=== PATIENT | female | born 2005 | race Caucasian/White ===

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

== ENCOUNTER 2023-01-05 17:52 | Emergency (ER) | payer BC, SELFPAY ==
[2023-01-05 17:52] VITALS: BP 149/90; PULSE 93; RESP 16; TEMP 36.8; O2SAT 98; BMI 32.3
[2023-01-05 18:00] VITALS: BP 148/85; PULSE 74; RESP 20; O2SAT 97
[2023-01-05 18:30] VITALS: BP 139/71; PULSE 73; RESP 20; O2SAT 99
[2023-01-05 18:33] LABS: Microscopic, Urine URINE MICROSCOPIC (MICROSCOPIC)
[2023-01-05 18:39] LABS: Appearance,Urine CLEAR (Clear); Bilirubin,Urine Negative (Negative); Blood, Urine 3+ (Negative); Color,Urine YELLOW (Yellow); Glucose,Urine (UA) Negative (Negative); Ketones,Urine 1+ (Negative); Leukocyte Esterase,Urine Negative (Negative); Nitrate,Urine Negative (Negative); PH,Urine 6.5 (5.0-8.5); Protein,Urine TRACE (Negative); Specific Gravity, Urine 1.015 (1.005-1.030)
--- NOTE | 2023-01-05 18:40 | HMH.EDGENADL ---
Discharge Plan Disposition Patient Disposition: Home, Self-Care Prescriptions Prescriptions: New ibuprofen 800 mg tablet 800 mg PO TID PRN (Reason: pain) 7 Days Qty: 20 0RF hydrocodone-acetaminophen 5-325 mg tablet 1 tab PO Q6H PRN (Reason: pain) 3 Days Qty: 12 0RF ondansetron 4 mg tablet,disintegrating 4 mg PO Q6H PRN (Reason: nausea and vomiting) 5 Days Qty: 20 0RF No Action norgestimate-ethinyl estradiol [Sprintec (28)] 0.25-35 mg-mcg tablet 1 tab PO DAILY Qty: 84 3RF Referrals Follow up/Referrals: Eduardo Galo MD [Primary Care Provider] - See instructions Clinical Impressions Clinical Impression: Hydronephrosis with renal and ureteral calculous obstruction Instructions Patient Instructions: DI for Acute Abdominal Pain Discharge ED Provider: Cody Hirsch General Adult HPI General Chief complaint: Abdominal Pain Stated complaint: abd pain Time Seen by Provider: 01/05/23 18:40 Mode of Arrival: Ambulatory Source of Information: Patient Limitations: No Limitations Description of Symptoms (Recalled from ER Triage Doc. by RN): pt to the ED with episdoes of intense right quadrant abdominal pain today with two episodes of nausea and vomiting including one with foul smelling dark emesis. pt also reports burning while urinating x 2 days. History of Present Illness HPI narrative: Patient is a 17-year-old female presenting with right lower quadrant abdominal pain. She states that this began relatively suddenly around 230 this afternoon and is subsequently associated with worsening with any type of movement. She has a history of PCOS but has never had any ruptured ovarian cysts before. Pain has somewhat improved since this first began. She still has her appendix has not had any abdominal surgeries. No vaginal bleeding or vaginal discharge she has had some mild dysuria the last few days no changes in bowel habits. No fevers or chills. Related Data Previous Rx's Medication Instructions Recorded norgestimate 0.25 mg-ethinyl 1 tab PO DAILY #84 tabs 12/03/22 estradiol 35 mcg tablet (Sprintec (28)) hydrocodone 5 mg-acetaminophen 325 1 tab PO Q6H PRN pain 3 days #12 01/05/23 mg tablet tabs ibuprofen 800 mg tablet 800 mg PO TID PRN pain 7 days #20 01/05/23 tabs ondansetron 4 mg disintegrating 4 mg PO Q6H PRN nausea and 01/05/23 tablet vomiting 5 days #20 tabs Allergies Allergy/AdvReac Type Severity Reaction Status Date / Time No Known Allergies Allergy Verified 01/19/22 09:15 [facility] Disclaimer: The information contained in this section may have been updated after the patient was seen, as this information can be updated by other users. Social History Smoking Status: Never smoker alcohol intake: never substance use type: denies use current occupational status: employed Travel in the last 8 weeks: None ROS Obtained: Yes All systems reviewed & no additional complaints except as documented Physical Exam General General appearance: alert Respiratory Respiratory exam: Present normal lung sounds bilaterally; Absent respiratory distress Cardiovascular Cardiovascular exam: Present regular rate; Absent tachycardia Abdominal Exam Abdominal exam: Present soft and tenderness (Right lower quadrant tenderness palpation no rebound or guarding no tenderness in other quadrant) Neurological Exam Neurological exam: Present alert, oriented X3 and CN II-XII intact Medical Decision Making Shad Inquiry Pt receiving controlled substance: No Vital Signs: 01/05/23 17:52 01/05/23 18:00 01/05/23 18:30 Temperature 98.3 F Temperature Source Oral Pulse Rate 74 73 Pulse Rate [Left Radial] 93 H Respiratory Rate 16 20 20 Blood Pressure 148/85 H 139/71 Blood Pressure [Right Arm] 149/90 H Blood Pressure Mean 101 93 Blood Pressure Mean [Right Arm] 109 Blood Pressure Source [Right Arm] Automatic Cuff Blood Pressure Position [Right Arm] Sitting 02 Sat by
--- NOTE | 2023-01-05 18:46 | CT_ITS ---
PROCEDURE INFORMATION: Exam: CT Abdomen And Pelvis With Contrast Exam date and time: 01/05/2023 7:20 PM Age: 17 years old Clinical indication: Abdominal pain; Localized; Right lower quadrant (rlq); Additional info: Rlq abd pain associated with vomiting today TECHNIQUE: Imaging protocol: Computed tomography of the abdomen and pelvis with contrast. Radiation optimization: All CT scans at this facility use at least one of these dose optimization techniques: automated exposure control; mA and/or kV adjustment per patient size (includes targeted exams where dose is matched to clinical indication); or iterative reconstruction. Contrast material: ISOVUE; Contrast volume: 75 ml; Contrast route: IV; REPORTING DATA: Count of CT and Cardiac NM exams in prior 12 months: This patient has received 0 known CTs and 0 known cardiac nuclear medicine studies in the 12 months prior to the current study. COMPARISON: No relevant prior studies available. FINDINGS: Liver: Normal. No mass. Gallbladder and bile ducts: Normal. No calcified stones. No ductal dilation. Pancreas: Normal. No ductal dilation. Spleen: Normal. No splenomegaly. Adrenal glands: Normal. No mass. Kidneys and ureters: On axial image 105, there is a 4 mm stone at or near the right ureterovesical junction. There is mild fullness of the right renal collecting system and mild periureteral edema. No other evidence of urolithiasis. Left kidney appears normal. Stomach and bowel: Unremarkable. No obstruction. No mucosal thickening. Appendix: No evidence of appendicitis. Intraperitoneal space: Unremarkable. No free air. No significant fluid collection. Vasculature: Unremarkable. No abdominal aortic aneurysm. Lymph nodes: There is mild diffuse mesenteric lymphadenopathy. No significant retroperitoneal lymphadenopathy. Urinary bladder: Unremarkable as visualized. Reproductive: Unremarkable as visualized. Bones/joints: Unremarkable. No acute fracture. Soft tissues: Unremarkable. IMPRESSION: 1. 4 mm stone in the region of the right ureterovesical junction producing mild right hydronephrosis 2. No CT evidence of appendicitis 3. Mild diffuse mesenteric lymphadenopathy, presumably sequela of prior enteritis or mesenteric adenitis
[2023-01-05 18:56] LABS: Urine Pregnancy, HCG Qual. Negative (Negative)
[2023-01-05 18:57] LABS: Bacteria,Urine Trace /lpf
[2023-01-05 19:00] VITALS: BP 133/71; PULSE 83; O2SAT 98
--- NOTE | 2023-01-05 19:25 | PC.NURSE ---
Pt returned from RAD
[2023-01-05 19:27] LABS: Basophils % 0.2 % (0.1-2.0); Eosinophils # 0.1 K/mm3 (0.0-0.4); Eosinophils % 0.5 % (0.1-12.0); Hematocrit 39.9 % (37.0-47.0); Hemoglobin 13.4 g/dL (12.2-16.2); Lymphocytes # 1.8 K/mm3 (0.7-4.5); Lymphocytes % 14.3 % (10-50); Mean Corpuscular HGB Conc 33.6 g/dL (31.8-35.4); Mean Corpuscular Hemoglobin 28.7 pg (27.0-31.2); Mean Corpuscular Volume 85.5 fl (81-99); Mean Platelet Volume 7.6 fl (7.4-10.4); Monocytes # 0.4 K/mm3 (0.1-1.0); Monocytes % 3.2 % (1.7-9.3); Neutrophils # 10.1 K/mm3 (1.8-7.8); Neutrophils % 81.8 % (37.0-80.0); Platelet Count 363 K/mm3 (142-424); Red Blood Count 4.67 M/mm3 (4.20-5.40); Red Cell Distribution Width 13.3 % (11.5-17.5); White Blood Count 12.3 K/mm3 (4.5-13.0)
[2023-01-05 19:30] VITALS: BP 128/81; PULSE 81; O2SAT 100
[2023-01-05 19:30] LABS: Chloride 103 mmol/L (98-107)
[2023-01-05 19:31] LABS: Potassium 4.1 mmoL/L (3.5-5.1); Sodium 141 mmol/L (136-145)
[2023-01-05 19:33] LABS: Alanine Aminotransferase 23 U/L (12-78); Aspartate Amino Transferase 32 U/L (14-36); Blood Urea Nitrogen 11 mg/dl (7-17); Creatinine Clearance Estimated 185 mL/min (50-200); Estimated Glomerular Filt Rate 108 ml/min (>60); GFR (African American) 130 ML/MIN (>60)
[2023-01-05 19:34] LABS: Albumin Level 4.4 g/dl (3.5-5.0); Albumin/Globulin Ratio 1.3 (1.1-1.8); Alkaline Phosphatase 66 U/L (38-126); Anion Gap 15.1 mEq/L (5-15); Bilirubin,Total 0.3 mg/dl (0.2-1.3); Calcium 9.5 mg/dl (8.4-10.2); Carbon Dioxide 27 mmol/L (22.0-30.0); Globulin 3.3 g/dL (1.3-3.2); Glucose 105 mg/dl (74-100); Total Protein,Serum 7.7 g/dl (6.3-8.2)
--- NOTE | 2023-01-05 19:44 | PC.NURSE ---
Dr. Hirsch at to update pt of results
[2023-01-05 20:01] VITALS: BP 124/73; PULSE 79; RESP 18; TEMP 36.8; O2SAT 100
== END 2023-01-05 20:04 | disposition home or self-care (01) ==
PROVIDERS: Emergency Provider Student in an Organized Health Care Education/Training Program; PCP Internal Medicine Adolescent Medicine
DX: N13.2 Hydronephrosis with renal and ureteral calculous obstruction (principal)
CPT/HCPCS: 74177; 80053; 81001; 81025; 85025; 96361; 96374; 96375; 99285; J2405; Q9967

== ENCOUNTER 2025-07-25 19:30 | Emergency (ER) | payer BC, SELFPAY ==
--- OUTSIDE RECORDS SUMMARY | 2025-02-05 06:30 | XMS_ITS ---
Author Organization [facility] Address [address] [facility] [address] [place] [id number] Care Team Providers Care Port Patrol Officer Name Role Phone Pool Fontenot Unavailable [phone] Allergies No Known Allergies Results Component Value Reference Range Notes CBC Venipuncture (in house) Reviewed date:02/06/2025 10:23:50 AM Interpretation:Normal Performing Lab: Notes/Report: Normal wbc 10.0 3.5 - 10 lymph 28.1% 15 - 50 mid 6.5% 2 - 15 gran 65.4% 35 - 80 rbc 5.40 3.5 - 5.5 hgb 15.5 11.5 - 16.5 hct 46.4 35 - 55 mcv 85.9 75 - 100 mch 28.8 25 - 35 mchc 33.6 31 - 38 platlet 420 100 - 400 P-Comprehensive Metabolic Pa wesley (CMP) Reviewed date:02/06/2025 10:23:50 AM Interpretation:Normal Performing Lab: Notes/Report: Test performed by [facility], [place] [address] [place] [address] , [address], [place] [address] Tomasz Lee MD, Health Information Managers CLIA: [id number] Sodium 138 135-145 mmol/L Potassium 4.4 3.5-5.3 mmol/L Chloride 102 97-108 mmol/L CO2 25 20-32 mmol/L Glucose 99 65-99 mg/dL BUN 15 6-20 mg/dL Creatinine 0.56 0.50-1.00 mg/dL Calcium 9.9 8.6-10.4 mg/dL eGFR by Creatinine 133 >59 mL/min/1.73m2 Protein 7.3 6.0-8.3 g/dL Albumin 4.3 3.5-5.3 g/dL Alkaline Phosphatase 79 35-121 IU/L ALT (SGPT) 20 <5-47 IU/L AST (SGOT) 14 <5-40 IU/L Bilirubin, Total 0.3 <0.2-1.2 mg/dL A/G Ratio 1.4 1.1-2.5 P-Testosterone, Free, Bioava ilable, and Total (Adult Male) Reviewed date:02/06/2025 10:23:50 AM Interpretation:TT 53.10, FreeT% 0.86 Performing Lab: Notes/Report: Test performed by [facility] [address] [place], [place] [address] [place] , [place] [address] Tomasz Lee MD, Health Information Managers CLIA: [id number] Testosterone Total 53.10 8.00-48.00 ng/dL Sex Hormone Binding Globulin (SHBG) 94.3 24.6-122.0 nmol/L Free Testosterone, Percent 0.86 1.60-2.90 % Free Testosterone (calculation) 5 1-7 pg/mL Testosterone Bioavailable 11 2-21 ng/dL P-FSH and LH Reviewed date:02/06/2025 10:23:50 AM Interpretation:LH 3.40, FSH 4.65 Performing Lab: Notes/Report: Test performed by [facility] [address] [place] [address] , [place] [address] Tomasz Lee MD, Health Information Managers CLIA: [id number] Luteinizing Hormone 3.40 LH Reference Range Men: 1.7 - 8.6 Women: Follicular phase 2.4 - 12.6 Ovulation phase 14.0 - 95.6 Luteal phase 1.0 - 11.4 Postmenopause 7.7 - 58.5 FSH 4.65 FSH Reference Range Men: 1.5 - 12.4 Women: Follicular phase 3.5 - 12.5 Ovulation phase 4.7 - 21.5 Luteal phase 1.7 - 7.7 Postmenopause 25.8 - 134.8 P-Lipid Panel Reviewed date:02/06/2025 10:23:50 AM Interpretation:Non-HDL 147 Performing Lab: Notes/Report: Test performed by [facility] [address] [place], [place] [address] [place] , [place] [address] Tomasz Lee MD, Health Information Managers CLIA: [id number] Cholesterol 198 <200 mg/dL Triglycerides 149 <150 mg/dL HDL Cholesterol 51 >39 mg/dL Cholesterol / HDL Ratio 3.88 0.00-4.44 Ratio Non-HDL Cholesterol 147 <130 mg/dL LDL Cholesterol (Calculation) 117 <130 mg/dL LDL Cholesterol Levels* Less than 100 mg/dL Optimal 100 to 129 mg/dL Near Optimal/ Above Optimal 130 to 159 mg/dL Borderline High 160 to 189 mg/dL High 190 mg/dL and above Very High * Categories as recommended by the 2004 ATPIII guidelines LDL/HDL Ratio 2.3 <3.3 Ratio LDL Cholesterol Patient History Test Date: 02/05/2025 LDL Results: 117 Units: mg/dL % Change: - Prolactin Reviewed date:02/06/2025 10:23:50 AM Interpretation:Normal Performing Lab: Notes/Report: Test performed by [facility] [address] [place] [address] [address], [place] [address] Tomasz Lee MD, Health Information Managers CLIA: [id number] Prolactin 8.58 4.79-23.30 ng/mL P-TSH reflex to FT4 Reviewed date:02/06/2025 10:23:50 AM Interpretation:Normal Performing Lab: Notes/Report: Test performed by [facility] [address] [address], [place] [address] Tomasz Lee MD, Health Information Managers CLIA: [id number] TSH reflex to FT4 1.62 0.43-5.25 mU/L P-Uric Acid Reviewed date:02/06/2025 10:23:50 AM Interpretation:Normal Performing Lab: Notes/Report: Test performed by [facility] [address] [place] [address] , [address], [place] [address] Tomasz Lee MD, Health Information Managers CLIA: [id number] Uric Acid 4.8 2.4-7.0 mg/dL REASON FOR VISIT New pt Medications Medication SIG (Take, Route, Frequency, Duration) Notes Start Date End Date Status Estarylla 0.25-35 MG-MCG 1 tablet Orally Once a day Active Ondansetron HCl 4 MG 1 tablet Orally 3 times a day As needed 02/05/2025 Active Problems Problem Type SNOMED Code ICD Code Onset Dates Problem Status W/U Status Risk Notes Problem Polycystic ovary syndrome (disorder) (550247300) PCOS (polycystic ovarian syndrome) (E28.2) Active confirmed Problem Morbid obesity (518432350) Morbid obesity (E66.01) Active confirmed Vital Signs Weight 245 lbs 02/05/2025 Blood pressure systolic 154 mm Hg 02/06/20 25 Blood pressure diastolic 98 mm Hg 025 Heart Rate 90 /min 02/05/2025 Height 65 in 02/05/2025 BMI 40.77 kg/m2 02/05/2025 Encounters Encounter Location Date Provider Diagnosis [facility] [address] [facility] [address] [place], [place] [id number] 02/05/2025 Pool Fontenot PCOS (polycystic ovarian syndrome) E28.2 ; Elevated blood pressure reading R03.0 ; Morbid obesity E66.01 and Motion sickness, initial encounter T75.3XXA Assessments Encounter Date Diagnosis (ICD Code) Assessment Notes Treatment Notes Treatment Clinical Notes Section Notes 02/05/2025 PCOS (polycystic ovarian syndrome) (ICD-10 - E28.2) 02/05/2025 Elevated blood pressure reading (ICD-10 - R03.0) Blood pressure journal 02/05/2025 Morbid obesity (ICD-10 - E66.01) Momo PA requested 02/05/2025 Motion sickness, initial encounter (ICD-10 - T75.3XXA) Plan Of Treatment Medication Medication Name Sig Start Date Stop Date Notes Ondansetron HCl 4 MG 1 tablet Orally 3 times a day 025 Treatment Notes Assessment Notes Elevated blood pressure reading Blood pr essure journal Morbid obesity Zepbound JOHNNY requeste d Next Appt Details Follow Up: via phone to repo rt test results, Reason: Progress Notes * Irish ZHOUDOB:[birth year] (19 yo F)Acc No.[id number]:02/05/2025 Progress Notes Patient: Irish ANTON Provider: Funmi Fontenot M.D. :2005 A ge:19 Y S ex:Female Date:02/05/2025 Phone: Address:[address] [place] [address], [place], [id number] Subjective: * Chief Complaints: * 1 . New pt. * HPI: H PI: 19 year old female presents with c/o Patient is here today for?Pt [facility], pt was previously seen by Dr. Galo. Pt states she is doing well and does not have any concerns today. * ROS: D ERMATOLOGY: no R alejandro. n o H viviana. G ASTROENTEROLOGY: no N ausea. n o V omiting. U ROLOGY: no D ifficulty urinating. n o B lood in urine. * Medical History: P olycystic ovarian syndrome, Kidney stones. * Surgical History: T onsilectomy , Adenoidectomy . * Hospitalization/Major Diagno stic Procedure: D enies Past Hospitalization. * Family History: F ather: alive 45 yrs. M other: alive 41 yrs. 1 sister(s) . . * Social History: C URRENT TOBACCO USE: No . C affeine: yes, frequency: 1-3 soft drinks per week. Alcohol: no. * Medications: T aking Estarylla 0.25-35 MG-MCG Tablet 1 tablet Orally Once a day , Medication List reviewed and reconciled with the patient * Allergies: N .K.D.A. Objective: * Vitals: W t: 245, Temp: 98.0, BP: 154/98, HR: 90, Nurse: lisandra, Ht: 65, BMI:40.77. * Examination: G eneral Examination: General Appearance: N AD. H EENT: u nremarkable.?Oral cavity: n o lesions, mucosa moist and WNL, no erythema. N aurora: s upple, no lymphadenopathy. H eart: R SR. L ungs: c lear to auscultation. S kin: n ormal, no rash. P eripheral pulses: n ormal (2+) bilaterally. E xtremities: n o leg edema.? Assessment: * Assessment: 1. P COS (polycystic ovarian syndrome) - E28.2 (Primary) 2 . E levated blood pressure reading - R03.0 3 . M orbid obesity - E66.01 4 . M otion sickness, initial encounter - T75.3XXA Plan: * Treatment: Value Reference Range F ree Testosterone, Percent 0.86 L 1.60-2.90 - % * S ex Hormone Binding Globulin (SHBG) 94.3 24.6- 122.0 - nmol/L * T estosterone Total (Adult Male) 53.10 H 8.00-48.0 0 - ng/dL * T estosterone Bioavailable 11 2-21 - ng/dL * F ree Testosterone (calculation) 5 1-7 - pg/ mL * Maria De Guzman 02/06/2025 10:2 3:42 AM EDT > See phone encounter ?LAB: P-FSH and LH (Collection Date & Time - 02/05/2025 11:23 AM)?LH 3.40, FSH 4.65* Value Reference Range F SH 4.65 - mIU/mL * L uteinizing Hormone 3.40 - mIU/mL * Maria De Guzman 02/06/2025 10:2 3:42 AM EDT > See phone encounter ?LAB: Prolactin (Collection Date & Time - 02/05/2025 11:23 AM)?Normal* Value Reference Range P rolactin 8.58 4.79-23.30 - ng/mL * Maria De Guzman 02/06/2025 10:2 3:42 AM EDT > See phone encounter ?LAB: P-TSH reflex to FT4 (Collection Date & Time - 02/05/2025 11:23 AM)? Normal* Value Reference Range T SH reflex to FT4 1.62 0.43-5.25 - mU/L * Maria De Guzman 02/06/2025 10:2 3:42 AM EDT > See phone encounter 2.?Elevated blood pressure reading?LAB: P-Comprehensive Metabolic Panel (CMP) (Collection Date & Time - 02/05/2025 11:23 AM)?Normal* Value Reference Range A /G Ratio 1.4 1.1-2.5 - * A lbumin 4.3 3.5-5.3 - g/dL * A lkaline Phosphatase 79 35-121 - IU/L * A LT (SGPT) 20 <5-47 - IU/L * A ST (SGOT) 14 <5-40 - IU/L * B ilirubin, Total 0.3 <0.2-1.2 - mg/dL * B UN 15 6-20 - mg/dL * C alcium 9.9 8.6-10.4 - mg/dL * C hloride 102 97-108 - mmol/L * C O2 25 20-32 - mmol/L * C reatinine 0.56 0.50-1.00 - mg/dL * G lucose 99 65-99 - mg/dL * P otassium 4.4 3.5-5.3 - mmol/L * S odium 138 135-145 - mmol/L * P rotein 7.3 6.0-8.3 - g/dL * e GFR by Creatinine 133 >59 - mL/min/1.73m2 * Maria De Guzman 02/06/2025 10:2 3:42 AM EDT > See phone encounter ?LAB: P-Lipid Panel (Collection Date & Time - 02/05/2025 11:23 AM)?Non-HDL 147* Value Reference Range C holesterol / HDL Ratio 3.88 0.00-4.44 - Ratio * C holesterol 198 <200 - mg/dL * H DL Cholesterol 51 >39 - mg/dL * L DL Cholesterol (Calculation) 117 <130 - mg/d L * L DL/HDL Ratio 2.3 <3.3 - Ratio * N on-HDL Cholesterol 147 H <130 - mg/dL * T riglycerides 149 <150 - mg/dL * Maria De Guzman 02/06/2025 10:2 3:42 AM EDT > See phone encounter ?LAB: P-TSH reflex to FT4 (Collection Date & Time - 02/05/2025 11:23 AM)? Normal* Value Reference Range T SH reflex to FT4 1.62 0.43-5.25 - mU/L * Maria De Guzman 02/06/2025 10:2 3:42 AM EDT > See phone encounter ?LAB: P-Uric Acid (Collection Date & Time - 02/05/2025 11:23 AM)?Normal* Value Reference Range U lyndsay Acid 4.8 2.4-7.0 - mg/dL * Gege Maria 02/06/2025 10:2 3:42 AM EDT > See phone encounter ?LAB: CBC Venipuncture (in house) (Collection Date & Time - 02/05/2025)? Normal* Value Reference Range w bc 10.0 3.5 - 10 * l ymph 28.1% 15 - 50 * m id 6.5% 2 - 15 * g ran 65.4% 35 - 80 * r bc 5.40 3.5 - 5.5 * h gb 15.5 11.5 - 16.5 * h ct 46.4 35 - 55 * m cv 85.9 75 - 100 * m ch 28.8 25 - 35 * m chc 33.6 31 - 38 * p latlet 420 100 - 400 * Melinda Duke 02/05/2025 05:47:3 7 PM EDT > GegeMaria 02/06/2025 10:23:42 AM EDT > See phone encounter Notes: Blood pressure journal??3.?Morbid obesity?LAB: P-Comprehensive Metabolic Panel (CMP) (Collection Date & Time - 02/05/2025 11:23 AM)?Normal* Value Reference Range A /G Ratio 1.4 1.1-2.5 - * A lbumin 4.3 3.5-5.3 - g/dL * A lkaline Phosphatase 79 35-121 - IU/L * A LT (SGPT) 20 <5-47 - IU/L * A ST (SGOT) 14 <5-40 - IU/L * B ilirubin, Total 0.3 <0.2-1.2 - mg/dL * B UN 15 6-20 - mg/dL * C alcium 9.9 8.6-10.4 - mg/dL * C hloride 102 97-108 - mmol/L * C O2 25 20-32 - mmol/L * C reatinine 0.56 0.50-1.00 - mg/dL * G lucose 99 65-99 - mg/dL * P otassium 4.4 3.5-5.3 - mmol/L * S odium 138 135-145 - mmol/L * P rotein 7.3 6.0-8.3 - g/dL * e GFR by Creatinine 133 >59 - mL/min/1.73m2 * Maria De Guzman 02/06/2025 10:2 3:42 AM EDT > See phone encounter ?LAB: P-TSH reflex to FT4 (Collection Date & Time - 02/05/2025 11:23 AM)? Normal* Value Reference Range T SH reflex to FT4 1.62 0.43-5.25 - mU/L * Maria De Guzman 02/06/2025 10:2 3:42 AM EDT > See phone encounter Notes: Zepbound PA requested??4.?Motion sickness, initial encounter? Start Ondansetron HCl Tablet, 4 MG, 1 tablet, Orally, 3 times a day As needed, 30, Refills 1.? * Procedure Codes: 8 5025 CBC WITH AUTO DIFF, 1036F TOBACCO NON-USER * Follow Up: v ia phone to report test results * Images: Billing Information: * Visit Code: 23012 Office Visit, New Pt., Level 4. * Procedure Codes: 98373 CBC WITH AUTO DIFF. 1036F TOBACCO NON-USER. * Electronic signature of Christine Fontenot MD on 07/25/2025 at 08:15 PM EST Sign off status: Pending * Provider: Funmi Fontenot M.D. Date: 0 02/05/2025 Generated for Liborio zavala/Josie/eTransmitting on: 1 09/25/2024 08:15 PM EST History and Physical Notes * HPI (History of Present Illness) Category Sub-Category Detail Notes Category Not es HPI Patient is here today for Pt [facility], pt was previously seen by Dr. Galo. Pt states she is doing well and does not have any concerns today Examination Category Sub-Category Detail Notes Category Not es General Examination HEENT: unremarkable Heart: RSR Lungs: clear to auscultatio n Extremities: no leg edema General Appearance: NAD Skin: normal, no rash Neck: supple, no lymphaden opathy Oral cavity: no lesions, mucosa m oist and WNL, no erythema Peripheral pulses: normal (2+) bilatera lly
[2025-07-25 19:56] LABS: Microscopic, Urine URINE MICROSCOPIC (MICROSCOPIC)
[2025-07-25 20:14] LABS: Bilirubin,Urine Negative (Negative); Color,Urine YELLOW (Yellow); Glucose,Urine (UA) Negative (Negative); Ketones,Urine Negative (Negative); Leukocyte Esterase,Urine Negative (Negative); PH,Urine 7.0 (5.0-8.5); Protein,Urine Negative (Negative); Specific Gravity, Urine 1.020 (1.005-1.030); Urobilinogen,Urine 0.2 EU/dl (0.2)
--- OUTSIDE RECORDS SUMMARY | 2025-07-25 20:15 | XMS_ITS | Patient Health Record ---
Author Organization [facility] Address [address] [facility] [address] [place] [id number] Care Team Providers Care Alterations Workroom Clerk Name Role Phone Pool Fontenot Unavailable [phone] Allergies No Known Allergies Results Component Value [...] date:02/06/2025 10:23:50 AM Interpretation:Normal Performing Lab: Notes/Report: CLIA: [id number] Tomasz Lee MD, Surfacing Machine Operator [address] [place] [address] , [address], [place] [address] Test performed by [facility], [employer] Sodium 138 135-145 mmol/L Potassium 4.4 3.5-5.3 [...] 0.86 Performing Lab: Notes/Report: Test performed by [facility] [address] [place] [address] , [place] [address] Tomasz Lee MD, Surfacing Machine Operator CLIA: [id number] Testosterone Total 53.10 8.00-48.00 ng/dL Sex Hormone Binding Globulin (SHBG) 94.3 24.6-122.0 nmol/L Free Testosterone, Percent 0.86 1.60-2.90 % Free Testosterone (calculation) 5 1-7 pg/mL Testosterone Bioavailable 11 2-21 ng/dL P-FSH and LH Reviewed date:02/06/2025 10:23:50 AM Interpretation:LH 3.40, FSH 4.65 Performing Lab: Notes/Report: Test performed by [facility] [address] [place] [address] , [place] [address] Tomasz Lee MD, Surfacing Machine Operator CLIA: [id number] Luteinizing Hormone 3.40 LH Reference Range Men: [...] 147 Performing Lab: Notes/Report: Test performed by [facility] [address] [place], [place] [address] , [place] [address] Tomasz Lee MD, Surfacing Machine Operator CLIA: [id number] Cholesterol 198 <200 mg/dL Triglycerides 149 <150 [...] Interpretation:Normal Performing Lab: Notes/Report: Test performed by [facility] [address] [place] [address] , [place] [address] Tomasz Lee MD, Surfacing Machine Operator CLIA: [id number] Prolactin 8.58 4.79-23.30 ng/mL P-TSH reflex to FT4 Reviewed date:02/06/2025 10:23:50 AM Interpretation:Normal Performing Lab: Notes/Report: Test performed by [facility] [address] [place] [address] , [address], [place] [address] Tomasz Lee MD, Surfacing Machine Operator CLIA: [id number] TSH reflex to FT4 1.62 0.43-5.25 mU/L P-Uric Acid Reviewed date:02/06/2025 10:23:50 AM Interpretation:Normal Performing Lab: Notes/Report: Test performed by [employer], [employer] [address] [place] [address] , [address], [place] [address] Tomasz Lee MD, Surfacing Machine Operator CLIA: [id number] Uric Acid 4.8 2.4-7.0 mg/dL Reason For Referral No Information Medications Medication SIG (Take, Route, Frequency, Duration) Notes Start Date End Date Status Estarylla 0.25-35 MG-MCG 1 tablet Orally Once a day Active Ondansetron 4 MG 1 tablet on the tong ue and allow to dissolve Orally 3 times a day prn 02/05/2025 Active Problems Problem Type SNOMED Code ICD Code Onset Dates Problem Status W/U Status Risk Notes Problem Morbid obesity (870684838) Morbid obesity (E66.01) Active confirmed Problem Polycystic ovary syndrome (disorder) (838324957) PCOS (polycystic ovarian syndrome) (E28.2) Active confirmed Vital Signs Heart Rate 90 /min 02/05/2025 Blood pressure diastolic 98 mm Hg 02/05/2025 Height 65 in 02/05/2025 Blood pressure systolic 154 mm Hg 02/05/2025 Weight 245 lbs 02/05/2025 BMI 40.77 kg/m2 02/05/2025 Encounters Encounter Location Date Provider Diagnosis [facility] [address] [facility] [address] [place], [place] [id number] 02/05/2025 Pool Golden PCOS (polycystic ovarian syndrome) E28.2 ; Elevated blood pressure reading R03.0 ; Morbid obesity E66.01 and Motion sickness, initial encounter T75.3XXA [facility] [address] [place], [place] [id number] 02/05/2025 Pool Golden [facility] [address] [place], [place] [id number] 02/05/2025 Pool Golden Motion sickness, initial encounter T75.3XXA [facility] [address] [place], [place] [phone] 02/06/2025 Pool Fontenot Assessments Encounter Date Diagnosis (ICD Code) Assessment Notes Treatment Notes Treatment Clinical Notes Section Notes 02/05/2025 PCOS (polycystic ovarian syndrome) (ICD-10 - E28.2) 02/05/2025 Elevated blood pressure reading (ICD-10 - R03.0) Blood pressure journal 02/05/2025 Motion sickness, initial encounter (ICD-10 - T75.3XXA) 02/05/2025 Morbid obesity (ICD-10 - E66.01) Zepbound PA requested 02/05/2025 Motion sickness, initial encounter (ICD-10 - T75.3XXA) Plan Of Treatment No Information Insurance Providers Payer Name Payer Address Payer Phone Subscriber Number Group Number Insured Name Patient Relationship to Insured Coverage Start Date Coverage End Date [facility] [address] [place] [address] [id number] Irish Alfaro Self - patient is the insured Medical (General) History Medical History History ICD Code Polycystic ovarian syndrome kidney stones Surgical History Surgery Date(Month/Year) Tonsilectomy Adenoidectomy
[2025-07-25 20:20] VITALS: BP 154/67; PULSE 89; RESP 18; TEMP 36.6; O2SAT 98; BMI 38.7
--- NOTE | 2025-07-25 20:25 | ED_ITS ---
Discharge Plan Disposition Patient Disposition: Home, Self-Care Condition: Good Prescriptions Prescriptions: New dicyclomine 10 mg capsule 10 mg PO BID 5 Days Qty: 10 0RF No Action norgestimate-ethinyl estradiol [Estarylla] 0.25-0.035 mg tablet 1 tab PO DAILY Qty: 84 4RF Referrals Follow up/Referrals: Eduardo aGlo MD [Primary Care Provider, Internal Medicine] - See instructions Activity Restrictions/Add. Instructions Additional Instructions/Restrictions: You can take the Bentyl as needed and take Tylenol and ibuprofen for your symptoms over the next couple days. Please return to the emergency department for any acute or significant worsening symptoms. Clinical Impressions Clinical Impression: Abdominal pain Instructions Patient Instructions: DI for Acute Abdominal Pain Print Language Print Language: Indonesian Discharge ED Provider: Tory Martínez Adult HPI General Chief complaint: Abdominal Pain Stated complaint: abdominal pain burning urination Time Seen by Provider: 07/25/25 19:41 History of Present Illness HPI narrative: Patient is a 19-year-old female with no significant past medical history who presented to the emergency department with abdominal pain. Patient states that her symptoms started today started in her right upper quadrant, migrated to the left lower quadrant and then to the middle of her abdomen. Patient denies any fevers, patient denies any chest pain or shortness of breath. Patient denies any vomiting reports some mild nausea. Patient reports 2 episodes of diarrhea 2 days ago which have since resolved. Patient reports normal bowel movement today. Patient denies any prior abdominal surgeries. Patient is on hormone medications for PCOS but denies any other medications. Patient states that she is currently pain-free at this time. Patient does report some burning with urination but denies any frequency or urgency. Related Data Previous Rx's ?Medication ?Instructions ?Recorded norgestimate 0.25 mg-ethinyl 1 tab PO DAILY #84 tabs 0 01/22/25 estradiol 0.035 mg tablet (Estarylla) dicyclomine 10 mg capsule 10 mg PO BID 5 days #10 caps 07/25/25 Allergies Allergy/AdvReac Type Severity Reaction Status Date / Time No Known Allergies Allergy Verified 01/22/25 14:45 [facility] Disclaimer: The information contained in this section may have been updated after the patient was seen, as this information can be updated by other users. Medical History No significant medical problems Surgical History History of tonsillectomy Family History Other Cancer Diabetes Social History Smoking Status: Never smoker alcohol intake: never substance use type: denies use current occupational status: employed Travel in the last 8 weeks?: None Have you lived/traveled outside [place] in past 30 days?: No Contact w/someone who lives/traveled outside [place] past 30 days?: No Exposure to someone with infectious disease in past 14 days?: No Do you have a fever (greater than 100.4 F or 38 C)?: No Have you tested positive for COVID-19?: No Exposed to someone with COVID-19 in past 14 days?: No Do you have a sore throat?: No Do you have a cough?: No Do you have any weakness?: No Do you have any diarrhea?: No Are you experiencing any unusual bleeding?: No Do you have any muscle aches/pain?: No Do you have any abdominal pain?: Yes Are you experiencing loss of taste or smell?: No ROS Obtained: Yes All systems reviewed & no additional complaints except as documented and Yes Systems reviewed as appropriate & no additional complaints except as documented Physical Exam General General appearance: alert and in no apparent distress Head Head exam: atraumatic, normocephalic and normal inspection Eye Eye exam: Present normal appearance, PERRL and EOMI; Absent scleral icterus ENT ENT exam: Present normal exam and normal external ear exam Neck Neck exam: Present normal inspection and full ROM Chest Chest inspection: Present normal inspection and symmetric chest wall rise Respiratory Respiratory exam: Present normal lung sounds bilaterally; Absent respiratory distress or wheezes Cardiovascular Cardiovascular exam: Present regular rate, normal rhythm and normal heart sounds Abdominal Exam Abdominal exam: Present soft, distention and tenderness (rlq and suprapubic tenderness); Absent guarding or rebound Extremities Exam Extremities exam: Present normal inspection and full ROM Back Exam Back exam: Present normal inspection and full ROM Neurological Exam Neurological exam: Present alert and oriented X3 Psychiatric Psychiatric exam: Present normal affect and normal mood Skin Skin exam: Present warm and dry Medical Decision Making Medical Records Medical records reviewed: Yes I reviewed the patient's medical records. Screening: Per USPSTF and CDC recommendations, given the prevalence of disease in our region, it is our hospital?s policy to screen for HIV and viral Hepatitis for all patients aged 18 and over and those with ongoing risk factors. Shad Inquiry Pt receiving controlled substance: No Vital Signs: 07/25/25 20:20 07/25/25 20:26 07/25/25 23:09 Temperature 97.9 F 98.9 F 98.5 F Temperature Source Oral Oral Oral Pulse Rate 74 88 Pulse Rate [Left] 89 Respiratory Rate 18 18 15 Blood Pressure 154/78 H 138/87 Blood Pressure [Right Arm] 154/67 H Blood Pressure Mean [Right Arm] 96 Blood Pressure Source Automatic Cuff Blood Pressure Position Sitting 02 Sat by Pulse Oximetry 98 98 Oxygen Delivery Method Room Air Room Air Room Air Lab Data Lab results reviewed: Yes I reviewed the patient's lab results. Lab Results 07/25/25 19:40: Urine Color Yellow, Urine Appearance Clear, Urine pH 7.0, Ur Specific [place] 1.020, Urine Protein Negative, Urine Glucose (UA) Negative, Urine Ketones Negative, Urine Blood Negative, Urine Nitrate Negative, Urine Bilirubin Negative, Urine Urobilinogen 0.2, Ur Leukocyte Esterase Negative 07/25/25 20:50: WBC 11.3 H, RBC 4.72, Hgb 13.5, Hct 39.6, MCV 83.9, MCH 28.6, MCHC 34.1, RDW 12.6, Plt Count 371, MPV 8.9, Neut % (Auto) 52.8, Lymph % (Auto) 38.7, [place] % (Auto) 6.2, Eos % (Auto) 1.6, Baso % (Auto) 0.4, Neut # (Auto) 6.0, Lymph # (Auto) 4.4, [place] # (Auto) 0.7, Eos # (Auto) 0.2, Baso # (Auto) 0.1, Sodium 139, Potassium 3.7, Chloride 104, Carbon Dioxide 26, Anion Gap 12.7, BUN 13, Creatinine 0.80, Estimated Creat Clear 191, Estimated GFR 91, Est GFR ( Amer) 110, Glucose 101 H, Calcium 9.5, Total Bilirubin 0.3, AST 27, ALT 27, Alkaline Phosphatase 64, Total Protein 8.0, Albumin 4.7, Globulin 3.3 H, Albumin/Globulin Ratio 1.4, Lipase 61, Serum HCG, Qual Negative, HCV Ab DICK w/Rflx PCR Qn Negative, HIV Ag/Ab Combo Qual Negative 07/25/25 20:50 07/25/25 20:50 Orders (Tests/Meds): ED MEDICATIONS Discontinued Medications Generic Name Dose Route Start Last Admin Trade Name Minhq PRN Reason Stop Dose Admin Iopamidol 75 ml 07/25/25 21:37 07/25/25 21:38 Iopamidol-370 (76%);100ml Bottle IV 07/25/25 21:38 75 ml ONCE ONE Administration Sodium Chloride 10 ml 07/25/25 21:37 07/25/25 21:38 Sodium Chloride 0.9% 10ml Syr (Rad Only) IV 07/25/25 21:38 10 ml ONCE ONE Administration ORDERS Category Date Time Status CT abdomen pelvis w con Stat Cat Scan 07/25/25 20:31 Completed CBC w/Auto Diff [Complete Blood Count Auto Diff] Stat Lab 07/25/25 20:50 Completed CMP [Comprehensive Metabolic Panel] Stat Lab 07/25/25 20:50 Completed HCG Qualitative, Serum Stat Lab 07/25/25 20:50 Completed HIV Combo Stat Lab 07/25/25 20:50 Completed Hepatitis C Ab Qual. W/ RFX Stat Lab 07/25/25 20:50 Completed Lipase Stat Lab 07/25/25 20:50 Completed UA [Urinalysis and Microscopic] Stat Lab 07/25/25 19:40 Completed Medical Decision Narrative: Patient is an otherwise healthy 19-year-old female who presented to the emergency department with abdominal pain. On arrival, patient was hemodynamically stable with unremarkable vital signs. Differential includes but not limited to: Intra-abdominal process, gallbladder disease, urinary tract infection, appendicitis, amongst others. Patient's labs reviewed and interpreted by myself: CBC showed no leukocytosis, hemoglobin was stable. CMP was unremarkable. test was negative. UA showed no evidence of infection. CT abdomen was obtained which showed no acute pathology. At this time given that patient's symptoms are resolved I felt the patient was stable and appropriate for discharge. Patient was recommended to take Tylenol ibuprofen and patient was sent with Bentyl. Patient was given strict return precautions and patient was otherwise discharged home in stable condition. Critical Care Critical Care Time Critical Care Time: No
[2025-07-25 20:26] VITALS: BP 154/78; PULSE 74; RESP 18; TEMP 37.2; O2SAT 98
--- NOTE | 2025-07-25 20:31 | CT_ITS ---
PROCEDURE INFORMATION: Exam: CT Abdomen And Pelvis With Contrast Exam date and time: 07/25/2025 9:33 PM Age: 19 years old Clinical indication: Abdominal pain; Additional info: Rlq tenderness, eval for appy TECHNIQUE: Imaging protocol: Computed tomography of the abdomen and pelvis with contrast. Radiation optimization: All CT scans at this facility use at least one of these dose optimization techniques: automated exposure control; mA and/or kV adjustment per patient size (includes targeted exams where dose is matched to clinical indication); or iterative reconstruction. Contrast material: ISOVUE; Contrast volume: 75 ml; Contrast route: IV; COMPARISON: CT ABDOMEN PELVIS W CON 01/05/2023 7:20 PM FINDINGS: Lungs: See Pleural spaces finding. Pleural spaces: New left costophrenic angle 9 x 12 mm pulmonary nodule is nonspecific. Liver: Normal. No mass. Gallbladder and biliary ducts: Normal. No calcified stones. No ductal dilation. Pancreas: Normal. No ductal dilation. Spleen: Normal. No splenomegaly. Adrenal glands: Normal. No mass. Kidneys and ureters: 5 mm nonobstructive left sided kidney stone. 4 mm low-density focus in the right kidney is too small to characterize but statistically favors a benign process (no further follow-up needed). Stomach and bowel: Unremarkable. No obstruction. No mucosal thickening. Appendix: Normal appendix. Intraperitoneal space: A small volume of mildly complex density free pelvic fluid is nonspecific but likely physiologic. Vasculature: Unremarkable. No abdominal aortic aneurysm. Lymph nodes: Nonspecific prominent lymph nodes in the deep drainage pattern of the liver are most likely reactive. Urinary bladder: Unremarkable as visualized. Reproductive: Unremarkable as visualized. Bones/joints: Disc bulge at L5/S1. Soft tissues: Unremarkable. IMPRESSION: 1. Normal appendix. 2. New left costophrenic angle 9 x 12 mm pulmonary nodule is nonspecific. For patients at low risk (minimal or absent history of smoking and of other known risk factors), no routine follow-up is indicated. For patients at high risk (history of smoking or of other known risk factors), consider optional CT Chest at 12 months. (Reference: Efra) 3. A small volume of mildly complex density free pelvic fluid is nonspecific but likely physiologic. REFERENCES: Efra Jurado, et al. Guidelines for Management of Incidental Pulmonary Nodules Detected on CT Images: From the Fleischner Society 2017. Radiology. 2017;284(1):228-243.
[2025-07-25 20:59] LABS: Hematocrit 39.6 % (37.0-47.0); Hemoglobin 13.5 g/dL (12.2-16.2); Immature Granulocytes % 0.3 %; Mean Corpuscular HGB Conc 34.1 g/dL (31.8-35.4); Mean Corpuscular Hemoglobin 28.6 pg (27.0-31.2); Mean Corpuscular Volume 83.9 fl (81-99); Nucleated Red Blood Cells % 0 %; Platelet Count 371 K/mm3 (142-424); Red Blood Count 4.72 M/mm3 (4.20-5.40); Red Cell Distribution Width-SD 38.3 fL; White Blood Count 11.3 K/mm3 (4.8-10.8)
[2025-07-25 21:04] LABS: Albumin Level 4.7 g/dl (3.5-5.0); Chloride 104 mmol/L (98-107); Sodium 139 mmol/L (136-145)
[2025-07-25 21:05] LABS: Potassium 3.7 mmoL/L (3.5-5.1)
[2025-07-25 21:07] LABS: Alanine Aminotransferase 27 U/L (12-78); Albumin/Globulin Ratio 1.4 (1.1-1.8); Alkaline Phosphatase 64 U/L (38-126); Anion Gap 12.7 mEq/L (5-15); Aspartate Amino Transferase 27 U/L (14-36); Bilirubin,Total 0.3 mg/dl (0.2-1.3); Blood Urea Nitrogen 13 mg/dl (7-17); Carbon Dioxide 26 mmol/L (22.0-30.0); Creatinine Clearance Estimated 191 mL/min (50-200); Creatinine,Serum 0.80 mg/dl (0.52-1.04); Estimated Glomerular Filt Rate 91 ml/min (>60); GFR (African American) 110 ML/MIN (>60); Globulin 3.3 g/dL (1.3-3.2); Lipase 61 U/L (23-300); Total Protein,Serum 8.0 g/dl (6.3-8.2)
[2025-07-25 21:08] LABS: Calcium 9.5 mg/dl (8.4-10.2); Glucose 101 mg/dl (74-100); HCG Qualitative, Serum Negative (Negative)
[2025-07-25] MEDS: SODIUM CHLORIDE 0.9% 10ML SYR (RAD ONLY) 10 ML IV (21:38)
[2025-07-25] MEDS: IOPAMIDOL-370 (76%);100ML BOTTLE 75 ML IV (21:38)
[2025-07-25 21:59] LABS: Hepatitis C Ab Qual. W/ RFX NEGATIVE (Negative)
[2025-07-25 23:09] VITALS: BP 138/87; PULSE 88; RESP 15; TEMP 36.9; O2SAT 99
== END 2025-07-25 23:11 | disposition home or self-care (01) ==
PROVIDERS: Emergency Provider Student in an Organized Health Care Education/Training Program; PCP Internal Medicine Adolescent Medicine
DX: R10.9 Unspecified abdominal pain (principal); R11.0 Nausea; Z79.3 Long term (current) use of hormonal contraceptives
CPT/HCPCS: 74177; 80053; 81001; 83690; 84703; 85025; 86803; 87389; 99284; 99285; Q9967